=== PATIENT | female | born 1980 | race Two or more races ===

== ENCOUNTER 2019-03-26 08:25 | Day surgery (SDC) | payer OTHER ==
[~2019-03-26 08:25] MED LIST: CEFAZOLIN 1 GM INJ; DESFLURANE 15 MIN
[2019-03-26] MEDS: LORAZEPAM 2 MG INJ IV (08:53)
[2019-03-26 09:03] LABS: ADD MAN DIFF? NO
[2019-03-26 09:04] LABS: BASOPHIL # 0.1 10^3/ul (0.0-0.1); BASOPHILS % 0.6 % (0.0-2.0); EOSINOPHILS # 0.1 10^3/ul (0.0-0.5); EOSINOPHILS % 1.5 % (0.0-7.0); HEMOGLOBIN 11.9 g/dl (12.0-16.0); LYMPHOCYTES # 1.5 10^3/ul (0.8-2.9); LYMPHOCYTES % 16.9 % (15.0-51.0); MEAN CORPUSCULAR HEMOGLOBIN 29.2 pg (29.0-33.0); MEAN CORPUSCULAR HGB CONC 33.1 g/dl (32.0-37.0); MEAN CORPUSCULAR VOLUME 88.2 fl (82.0-101.0); MONOCYTE # 0.5 10^3/ul (0.3-0.9); MONOCYTES % 5.5 % (0.0-11.0); NEUTROPHIL # 6.7 10^3/ul (1.6-7.5); NEUTROPHILS % 75.3 % (39.0-77.0); PLATELET COUNT 385 10^3/UL (140-415); RED BLOOD COUNT 4.08 10^6/ul (4.20-5.40); RED CELL DISTRIBUTION WIDTH 13.8 % (11.5-14.5)
[2019-03-26 09:04] LABS: WHITE BLOOD COUNT 8.8 10^3/ul (4.8-10.8)
[2019-03-26] MEDS ORDERED: ONDANSETRON 4 MG INJ ×2 (09:04→11:49)
[2019-03-26 09:20] LABS: ANION GAP 10 (5-13); BLOOD UREA NITROGEN 5 mg/dl (7-20); CARBON DIOXIDE 23 mmol/L (21-31); CHLORIDE 104 mmol/L (97-110); CREATININE 0.66 mg/dl (0.44-1.00); Estimated GFR > 60 mL/min (>60); GLUCOSE 124 mg/dl (70-220); POTASSIUM 3.5 mmol/L (3.5-5.1); SODIUM 137 mmol/L (135-144)
[2019-03-26] MEDS: ONDANSETRON 4 MG INJ IV ×2 (09:34→13:03)
[2019-03-26] MEDS: SOD CHLORIDE 0.9% 1,000 ML IV (10:53)
[2019-03-26] MEDS ORDERED: LIDOCAINE 2% (SDV) 5 ML INJ (11:15)
[2019-03-26] MEDS ORDERED: ROCURONIUM 50 MG INJ (11:15)
[2019-03-26] MEDS ORDERED: SUCCINYLCHOLINE CHLORIDE 100 MG/5 ML SYG IV (11:15)
[2019-03-26] MEDS ORDERED: MIDAZOLAM 1 MG/ML 2 ML INJ (11:15)
[2019-03-26] MEDS ORDERED: FENTAnyl 50 MCG/ML VIAL (11:15)
[2019-03-26] MEDS ORDERED: PROPOFOL 20 ML (11:15)
[2019-03-26] MEDS ORDERED: DEXAMETHASONE 4 MG/ML 5 ML INJ (11:49)
[2019-03-26] MEDS ORDERED: METOCLOPRAMIDE 10 MG INJ (11:49)
[2019-03-26] MEDS ORDERED: FAMOTIDINE 20 MG INJ (11:57)
[2019-03-26] MEDS ORDERED: ALBUMIN HUMAN 5% 250 ML (12:03)
[2019-03-26] MEDS ORDERED: VASOPRESSIN 20 UNITS INJ (12:03)
[2019-03-26] MEDS ORDERED: HYDROmorphONE 1 MG/5 ML IV SYRINGE IV ×3 (12:30)
[2019-03-26] MEDS ORDERED: METOCLOPRAMIDE 10 MG INJ IV (12:30)
[2019-03-26] MEDS ORDERED: MIDAZOLAM 1 MG/ML 2 ML INJ IV (12:30)
[2019-03-26] MEDS ORDERED: OXYCODONE/ACETAMINOPHEN (5/325) TAB PO ×2 (12:30)
[2019-03-26] MEDS: OXYTOCIN 10 UNIT INJ IV (12:41)
[2019-03-26] MEDS: MEPERIDINE 25 MG INJ IV (13:04)
[2019-03-26 13:10] LABS: HEMATOCRIT 26.8 % (37.0-47.0); HEMOGLOBIN 8.8 g/dl (12.0-16.0)
== END 2019-03-26 16:00 | disposition home or self-care (01) ==
LOC: E/R 08:25 → SUR 11:40 → SDS 11:40 → SUR 16:00
DX: O03.4 Incomplete spontaneous abortion without complication (principal)
CPT/HCPCS: 36415; 76801; 80048; 84702; 85014; 85018; 85025; 86900; 86901; 88305; 96374; 96375; 99285-25